=== PATIENT | female | born 1990 | race African-American/Black ===

== ENCOUNTER 2022-12-02 11:35 | Emergency (ER) | payer MEDICAID ==
[~2022-12-02] VITALS: Ht 157.5 cm; Wt 63.0 kg
[2022-12-02 11:38] VITALS: BP 132/84
[2022-12-02] MEDS ORDERED: IBUPROFEN 600MG TABLET PO ONE (12:45)
[2022-12-02] MEDS ORDERED: IBUP-2028 PO (13:53)
[2022-12-02] MEDS ORDERED: ACETAMINOPHEN 650MG/20.3ML UDC PO ONE (14:15)
== END 2022-12-02 14:20 | disposition home or self-care (01) ==
LOC: ER 11:35
DX: M54.2 Cervicalgia (principal); M54.50 Low back pain, unspecified; J45.909 Unspecified asthma, uncomplicated; W18.30XA Fall on same level, unspecified, initial encounter; Y93.89 Activity, other specified; Y92.89 Other specified places as the place of occurrence of the external cause; Y99.8 Other external cause status
CPT/HCPCS: 71045; 99283